=== PATIENT | female | born 2000 | race Two or more races ===

== ENCOUNTER 2022-05-19 15:35 | Emergency (ER) | payer MEDICAID ==
[2022-05-19 15:43] VITALS: BP 112/57
[2022-05-19 16:00] LABS: Urine Bacteria FEW /hpf (None Seen); Urine Blood 1+ /uL (Negative); Urine Mucus FEW (None Seen); Urine Specific Gravity 1.015 (1.001-1.035); Urine WBC 14 /hpf (0 - 5)
[2022-05-19 16:39] LABS: Albumin 3.6 g/dL (3.4-5.0); Calcium 8.4 mg/dL (8.5-10.1); Potassium 4.5 mmol/L (3.5-5.1)
[2022-05-19 16:42] LABS: BUN/Creatinine Ratio 12.8; Bilirubin, Total 0.3 mg/dL (0.2-1.0); Total Protein 7.6 g/dL (6.4-8.2)
[2022-05-19 17:12] LABS: Basophils # (auto) 0 10 ^3/uL (0-0.2); Eosinophils # (auto) 0.2 10 ^3/uL (0-0.8); Lymphocytes # (auto) 1.7 10 ^3/uL (0.4-5.4); Lymphocytes % (auto) 19.9 % (10.0-50.0); Mean Corpuscular Volume 79.4 fL (80.0-100.0); Monocytes # (auto) 0.4 10 ^3/uL (0-1.3)
[2022-05-19 17:15] LABS: Basophils % (auto) 0.3 % (0.0-2.0); Eosinophils % (auto) 2.4 % (0.0-7.0); Hematocrit 32.1 % (36.0-46.0); Hemoglobin 10.6 g/dL (12.2-16.2); Mean Corpuscular Hemoglobin 26.2 pg (28.0-32.0); Neutrophils # (auto) 6.1 10 ^3/uL (1.6-8.6); Neutrophils % (auto) 72.4 % (37.0-80.0); Red Blood Cells 4.04 10^6/uL (4.0-5.20); Red Cell Distribution Width 17.3 % (11.8-14.3); White Blood Cell 8.4 10^3/uL (4.4-10.8)
== END 2022-05-19 19:23 | disposition left against medical advice (07) ==
LOC: ER 15:35
DX: R10.11 Right upper quadrant pain (principal); R10.31 Right lower quadrant pain; Z53.21 Procedure and treatment not carried out due to patient leaving prior to being seen by health care provider
CPT/HCPCS: 36415; 80053; 81001; 81025; 82150; 83690; 85025

== ENCOUNTER 2022-05-21 22:54 | Emergency (ER) | payer MEDICAID ==
[~2022-05-21] VITALS: Ht 162.6 cm; Wt 10.0 kg
[2022-05-21 23:48] VITALS: BP 107/54
[2022-05-22 00:15] LABS: Urine Bacteria NONE SEEN /hpf (None Seen); Urine Blood Negative /uL (Negative); Urine Hyaline Cast FEW /lpf (0 - 2); Urine Mucus MANY (None Seen); Urine Specific Gravity 1.039 (1.001-1.035); Urine WBC 26 /hpf (0 - 5)
[2022-05-22 00:29] LABS: Basophils # (auto) 0 10 ^3/uL (0-0.2); Eosinophils # (auto) 0.2 10 ^3/uL (0-0.8)
[2022-05-22 00:31] LABS: Basophils % (auto) 0.4 % (0.0-2.0); Eosinophils % (auto) 1.8 % (0.0-7.0); Hematocrit 31.8 % (36.0-46.0); Hemoglobin 10.6 g/dL (12.2-16.2); Lymphocytes # (auto) 1.9 10 ^3/uL (0.4-5.4); Lymphocytes % (auto) 20.5 % (10.0-50.0); Mean Corpuscular Hemoglobin 26.2 pg (28.0-32.0); Mean Corpuscular Hgb Conc. 33.4 g/dL (32.0-36.0); Mean Corpuscular Volume 78.7 fL (80.0-100.0); Monocytes # (auto) 0.5 10 ^3/uL (0-1.3); Neutrophils # (auto) 6.5 10 ^3/uL (1.6-8.6); Neutrophils % (auto) 71.3 % (37.0-80.0); Red Blood Cells 4.04 10^6/uL (4.0-5.20); Red Cell Distribution Width 17.2 % (11.8-14.3); White Blood Cell 9.1 10^3/uL (4.4-10.8)
[2022-05-22 00:32] LABS: Albumin 3.6 g/dL (3.4-5.0); Calcium 8.4 mg/dL (8.5-10.1); Potassium 4.2 mmol/L (3.5-5.1)
[2022-05-22 00:34] LABS: BUN/Creatinine Ratio 12.7
[2022-05-22 00:36] LABS: Bilirubin, Total 0.6 mg/dL (0.2-1.0); Total Protein 7.2 g/dL (6.4-8.2)
[2022-05-22] MEDS ORDERED: NITR-87 PO (05:54)
== END 2022-05-22 06:46 | disposition home or self-care (01) ==
LOC: ER 22:54
DX: N39.0 Urinary tract infection, site not specified (principal)
CPT/HCPCS: 36415; 74176; 80053; 81001; 83690; 85025